=== PATIENT | female | born 1975 | race Caucasian/White ===

== ENCOUNTER 2017-03-21 05:47 | Day surgery (SDC) | payer OTHER ==
[~2017-03-21] VITALS: Ht 154.9 cm; Wt 105.3 kg
[2017-03-21] VITALS (10 sets, daily range): BP systolic 128–159; BP diastolic 70–99; PULSE 90–102; RESP 15–29; O2SAT 90–98
[~2017-03-21 05:47] MED LIST: ALPR0.254 PO; APRE30TA2 PO; FLUO10CA20 PO; MULT-1018 PO; OMEP20TA86 PO; RANI300T4 PO; probiotic PO
[2017-03-21] MEDS ORDERED: Dexamethasone 4 mg/mL Inj ONE (05:48)
[2017-03-21] MEDS ORDERED: Glycopyrrolate 0.2 MG/ML 1mL Inj ONE (05:48)
[2017-03-21] MEDS ORDERED: Phenylephrine/NS 100 mCg/mL 10 mL Syringe IVPUSH ONE (05:48)
[2017-03-21] MEDS ORDERED: EPHEDrine/NS 5 mg/mL 5 mL Syringe ONE (05:48)
[2017-03-21] MEDS ORDERED: Ondansetron 2 mg/mL 2 mL Inj ONE (05:48)
[2017-03-21] MEDS ORDERED: fentaNYL-PF 50 mCg/mL 2 mL Inj ONE (05:48)
[2017-03-21] MEDS ORDERED: Propofol 10,000 mCg/mL 20 mL Inj ONE (05:48)
[2017-03-21] MEDS ORDERED: Rocuronium 10 mg/mL 5 mL Inj ONE (05:48)
[2017-03-21] MEDS ORDERED: Neostigmine 1 mg/mL 10 mL Inj ONE (05:48)
[2017-03-21] MEDS: Lactated Ringer's 1,000 ML IV SCH ×2 (05:54→12:08)
[2017-03-21] MEDS ORDERED: Lactated Ringer's 1,000 ML IV ONE (09:49)
--- NOTE | 2017-03-21 12:08 | PCM.HPANE ---
Patient Data Surgeon Admitting Provider: Attending Provider:Ayesha Moreno MD Primary Care Physician:Ewa Scott MD Other Provider:Nikki Khanna Anesthesia Reason for Visit Biliary Colic Ht/WT & BMI Height (Feet): 5 Height (Inches): 1 Weight (Kilograms): 105.3 Body Mass Index 43.00 Allergies Coded Allergies: Penicillins (Verified Allergy, Unknown, swelling, 03/16/17) Past Anesthesia History Anesthesia History: Denies:: Abnormal Airway, Anesthesia Reactions, Difficult Intubation, Fam Anesthesia Reaction, Fam Malignant Hypertherm, Malignant Hyperthermia Diabetes History Hx Diabetes?: No MRSA MRSA: No Medications Hypertension Medication: No Home Meds Incl Beta Kristian: No Reported Medications Ranitidine 300 Mg [id number] Mg PO DAILY Ref 0 03/16/17 [probiotic] No Conflict Check1 Tab PO DAILY 03/16/17 Apremilast (Otezla)30 Mg [id number] Mg PO Q12H 03/16/17 Omeprazole 20 Mg Tablet.dr20 Mg PO BID Ref 0 03/16/17 Multivitamin (Multi Vitamin Daily)1 Each Tablet1 Each PO DAILY 30 Days Ref 0 03/16/17 Fluoxetine 10 Mg Mtqzcbu57 Mg PO DAILY Ref 0 03/16/17 Alprazolam 0.25 Mg Tablet0.5-1 Tab PO BID PRN For Anxiety Ref 0 03/16/17 Discontinued Reported Medications Alprazolam 0.25 Mg Tablet0.25 Mg PO TID PRN For Anxiety 30 Days Ref 0 10/07/14 Omeprazole Magnesium (Omeprazole)20 Mg Capsule.dr20 Mg PO BID 30 Days Ref 0 10/07/14 Fluoxetine 20 Mg Dhsgytw59 Mg PO DAILY 30 Days Ref 0 10/07/14 History History of ENT Problems?: Yes HEENT History: Positive for:: Dysphagia TMJ Denies:: Abnormal Airway Difficult Intubation Hearing Problem Denture Type: None Teeth Condition: Within Normal Limits Hx of Heart Problems?: No Cardiovascular History: Denies:: AICD Chest Pain Edema Heart Murmur Hypertension Irregular Heartbeat Pacemaker Hx of Respiratory Problem?: No Respiratory History: Denies:: Asthma COPD Emphysema Oxygen Administration Pneumonia Tuberculosis Use of C-PAP Machine Use of Inhalers / NEBS Hx Neurologic Problems?: Yes Neurological History: Positive for:: Headaches Denies:: CVA Multiple Sclerosis Parkinson's Disease Seizures Hx of GI Problems?: Yes Other GI Pertinent History: hx of irritable bowel Hx of Problems?: No Genitourinary History: Denies:: Kidney Stones Urinary Tract Infection Female Hx: Denies:: Currently (HX: HYSTERECTOMY) Endometriosis Problems with Breasts? Skin History: Positive for:: History Skin Disorders? (psoriasis) Denies:: Pressure Ulcers Hx Musculoskeletal Problems?: Yes Musculoskeletal History: Positive for:: Fibromyalgia Denies:: Degenerative Joint Joint Replacement Musculoskeletal Trauma Osteoarthritis Hx of Psycho/Social Problems?: Yes Psycho Social History: Positive for:: Anxiety Hx Depression Hx Surgeries?: Yes (C/S X2,EXC GANGLION LT WRIST,T&A,ENDOMETRIAL BX) Hx Any Other Health Problems?: Yes Other History: Denies:: Cancer Endocrine Disease Hospitalization Thyroid Disease History Blood Transfusions: Denies:: Blood Transfusions Hx Diabetes: No Hx Alcohol Use: YesHx Substance Use: No Smoking Status: Former Smoker Have You Smoked inLast 12 mo: No Stop/Bang S-Snoring: Do You Snore Loudly: Yes T-Tired: feel tired, fatigued: No O-Obsered: Observed not breath: No P-Blood Pressure: treated: No B- Body Mass Index > 35 kg/m2: Yes A- Age over 50: No N- Neck Large Circumference: Yes G- Gender Male: No NAOMI Total Score: 2 NAOMI Risk Assessment: High Risk, =/>3 Yes Risk Assessment Category Category 1A: Patient has history of documented sleep apnea, and HAS NOT received any narcotic, sedative or anesthesia administration during this stay. Category 1B: Patient has history of documented sleep apnea, and HAS received any narcotic , sedative or anesthesia administration during this stay Category 2: Patient has SUSPECTED Obstructive Sleep Apnea, and HAS received any narcotic , sedative or anesthesia administration during this stay. Category 3: Patient has SUSPECTED Obstructive Sleep Apnea and HAS NOT received narcotic, sedative or anesthesia administration during this stay. Category 4: Outpatient in Procedural Areas with known sleep apnea or who screen positive for High Risk via the STOP/BANG questionnaire. Exam Exam Vital Signs Vital Signs Date Time Temp Pulse Resp B/P Pulse Ox O2 Delivery O2 Flow Rate FiO2 03/21/17 06:03 92 18 159/99 97 Room Air General Appearance: Alert, Oriented X3, Cooperative HEENT/AIRWAY: MP 3 Lungs: Clear to Auscultation Heart: Regular Rate/Rhythm Meds/Labs/Diagnostics Admission Meds Current Medications Lactated Ringer's (Lr) 1,000 ml @ 120 mls/hr Q8H20M IV Last administered on t 05:54; Start 03/21/17 at 05:00; Stop 03/21/17 at 13:19 Plan Impression Patient chart reviewed, patient interviewed and anesthestic plan with risks, benefits, and alternatives discussed, and informed consent obtained. ASA Physical Status: ASA3 Severe Disease Anesthetic Plan: GA Bene/Risks/Altern/Consents: Yes HP Complete Prior to Induction: Yes Gigi Urbano DO Mar 21, 2017 10:44
[2017-03-21] MEDS ORDERED: Bupivacaine-MPF 0.5% 30 mL Inj INFILTRATE ONE (12:35)
[2017-03-21] MEDS ORDERED: Bupivacaine 0.5% 50 mL Inj INFILTRATE ONE (12:35)
[2017-03-21] MEDS ORDERED: Lactated Ringer's 500 ML IV PRN (13:27)
[2017-03-21] MEDS ORDERED: Lactated Ringer's 1,000 ML IV SCH (13:27)
[2017-03-21] MEDS ORDERED: EPHEDrine Sulfate 50 mg/mL Inj IVPUSH PRN (13:30)
[2017-03-21] MEDS ORDERED: Ondansetron 2 mg/mL 2 mL Inj IVPUSH PRN (13:30)
[2017-03-21] MEDS ORDERED: HYDROmorphone 1 mg/mL Inj IVPUSH PRN (13:30)
[2017-03-21] MEDS ORDERED: Dexamethasone 4 mg/mL Inj IVPUSH PRN (13:30)
[2017-03-21] MEDS ORDERED: Phenylephrine 10,000 mCg/mL Inj IVPUSH PRN (13:30)
[2017-03-21] MEDS ORDERED: MetoCLOpramide 5 mg/mL 2 mL Inj IVPUSH PRN (13:30)
[2017-03-21] MEDS ORDERED: fentaNYL-PF 50 mCg/mL 2 mL Inj IVPUSH PRN (13:30)
[2017-03-21] MEDS ORDERED: oxyCODONE-Acetamin 5-325 mg Tablet PO PRN (13:55)
--- NOTE | 2017-03-21 14:02 | PCM.SURGOP ---
Surgical Operative Report Date of Service: Mar 21, 2017 Pre Operative Diagnosis Biliary colic Post Operative Diagnosis Chronic cholecystitis Procedure: Laparoscopic cholecystectomy, with intraoperative cholangiogram, with interpretation. Surgeon and Leather Production Worker: Surgeon: Ayesha Moreno MD Assistants: Xiomy Billy PA-C The presence of an retirement assistant was necessary for dissection and retraction. Indication for Procedure This is a 41yof with intermittent episodes of postprandial right upper quadrant pain and cholelithiasis on ultrasound without gallbladder wall thickening or pericholecystic fluid. She was scheduled for routine laparoscopic cholecystectomy on an outpatient basis. Findings: 1. Mildly inflamed gallbladder consistent with mild chronic cholecystitis. 2. Normal intraoperative cholangiogram with a long cystic duct, and adequate visualization of the right and left hepatic ducts, common hepatic duct, common bile duct, with good filling of the duodenum. Small filling defects with appearance of bubbles. Procedure Details The patient was brought to the operating room and placed in supine position. General endotracheal anesthesia was smoothly induced. Antibiotics were infused. A warming blanket and SCDs were placed. A foot board was placed. The operative field was prepped and draped in sterile fashion. A pause was performed to confirm the correct patient, procedure, site, and side. A vertical 10 mm incision was made several cm above the umbilicus. The abdomen was entered with an Optiview port. Three additional 5 mm ports were placed in the epigastrium and right upper quadrant. The gallbladder was identified and lifted cephalad. There were mild adhesions due to cholecystitis. Dissection then proceeded to identify the cystic duct, cystic artery, and to expose the lower one-third of the cystic plate. Once there were two and only two structures entering the gallbladder, a clip was placed on the gallbladder side of the cystic duct. A ductotomy was made and a cholangiocatheter was inserted. A cholangiogram was performed and the cystic duct was long and patent with normal filling of the common hepatic duct, common bile duct, and right and left hepatic ducts, as noted above. There were a few tiny filling defects with the appearance of bubbles. The cholangiocatheter was then removed, two clips were placed on the cystic duct and it was divided. The cystic artery was clipped on both the gallbladder side and the patient's side and divided. The gallbladder was then removed from its bed on the liver with electrocautery. Prior to completely removing the gallbladder, a final look was taken at the stump of the cystic artery and cystic duct, and there was no bleeding or bile leak. The gallbladder was then fully removed from the liver and placed in an EndoCatch bag and removed. The three 5 mm ports were removed under direct vision, the 10 mm mid abdominal port was removed, and a smdzja-om-alfsy 0 PDS was used to close the fascia. There was no fascial defect at the end of the case. 0.5% Marcaine with epinephrine was infused at all port sites for postoperative analgesia. The skin was closed with subcuticular 4-0 Monocryl. Sterile dressings were placed. Sponge, instrument, and needle counts were correct at the end of the procedure. The patient was awakened from general anesthesia and taken to the postoperative care unit in good condition. Complications There were no periprocedural complications identified. Surgical Specimen Removed: Yes Specimen sent to Pathology: Yes Surgical Specimen description: Gallbladder Anesthetic Plan: GA Grafts, Implants: None Output, Estimated Blood Loss: 2 (ml) Blood Administration during medeiros: No Ayesha Moreno MD Mar 21, 2017 14:02
[2017-03-21] MEDS ORDERED: OXYC1TAB24 PO (14:06)
--- NOTE | 2017-03-21 14:59 | DRSVH ---
PROCEDURE: X-RAY OPERATIVE CHOLANGIOGRAM ([id number]) INDICATIONS: BILIARY COLIC COMPARISON: [facility] Ultrasound, US, US ABDOMEN, 02/14/2017, 9:04. FINDINGS: Biliary ducts: The surgeon injected contrast into the biliary ducts after cannulation of the cystic duct stump. Visualized intra- and extrahepatic bile ducts are normal in caliber, without strictures. Several rounded intraluminal filling defects involving the extrahepatic bile duct.. No evidence fo r iatrogenic ductal injury. Duodenum: Contrast flows promptly through the sphincter of Oddi into the duodenum, which appears nor mal in caliber. IMPRESSION: Several small rounded intraluminal filling defect seen within the extra hepatic bile duct likely related to gas bubbles. Correlate with real-time examination. Dictated by: Stu Olivas RRA Interpreted: Cathy Stapleton MD on 03/21/2017 at 14:57 Transcribed by: TRAVON on 03/21/2017 at 14:58 Approved by: Cathy Stapleton MD, PhD on 03/21/2017 at 16:26
--- NOTE | 2017-03-21 16:52 | PCM.ANEP1 ---
Post Anesthesia Phase 1 PACU Phase 1 Assessment Date of Service: Mar 21, 2017 Vital Signs Vital Signs Date Time Temp Pulse Resp B/P Pulse Ox O2 Delivery O2 Flow Rate FiO2 03/21/17 15:15 90 16 128/70 98 Room Air 03/21/17 14:30 37.1 98 16 136/72 98 Nasal Cannula 2 03/21/17 14:21 94 15 128/83 96 Nasal Cannula 2 03/21/17 14:15 96 16 137/82 94 Nasal Cannula 2 03/21/17 14:10 94 18 134/81 90 Room Air 03/21/17 14:06 102 29 133/84 97 Simple Mask 10 03/21/17 14:00 95 20 136/81 97 Simple Mask 10 03/21/17 13:55 96 17 140/82 97 Simple Mask 10 03/21/17 13:52 36.4 94 16 142/82 97 Simple Mask 10 Anesthetic Administered: GA Level of Alertness: Sleepy, easy to arouse STORY's with Equal Strength: Yes Pain: No Nausea or Vomiting: No Cardiovascular Function and Hy: Yes Oxygen Delivery: Simple Mask Lungs: Clear to Auscultation Complications: No Follow up Care: No Patient Instructions Provided: Yes Gigi Urbano DO Mar 21, 2017 16:52
--- NOTE | 2017-03-23 13:21 | PATH ---
SURGICAL PATHOLOGY Attending Physician:Ayesha Moreno MD CASE STATUS: Signed Out PATIENT NAME: BARRY ORELLANA PID: [id number] : 1975 DATE COLLECTED:03/21/2017 00:00 SPECIMEN: Gallbladder CLINICAL HISTORY: BILIARY COLIC 1). GALLBLADDER FINAL DIAGNOSIS: 1.GALLBLADDER: CHOLELITHIASIS. ICD10 CODE K80.7 GROSS DESCRIPTION: The specimen is received in one formalin filled container labeled with the patient's name, sublabeled "gallbladder" and consists of a opened 7.0 x 3.0 x 1.0 CM gallbladder. The serosa is smooth. The wall is 0.2-0.3 CM in thickness. The mucosa is a light heaton brown in color. The lumen contains a light green mucoid material and 6 green heaton rough calculi which range in size from 0.6-0.7 CM. 5 in home sales representative sections are submitted in one cassette. 03/22/2017 DAC MICRO DESCRIPTION: See diagnosis. ICD-9 CODES: CPT CODES: 1: 45086 Electronically Signed Out Brittanie Frost MD [facility] [address], [place] [address] Technical component performed at [facility], [address] [place] [address] Ave[address], [place], [address]
== END 2017-03-21 23:59 | disposition home or self-care (01) ==
LOC: SAS 05:47
PROVIDERS: ATTEND Surgery
DX: K80.10 Calculus of gallbladder with chronic cholecystitis without obstruction (principal); R10.11 Right upper quadrant pain; E78.5 Hyperlipidemia, unspecified; K58.9 Irritable bowel syndrome, unspecified; F41.9 Anxiety disorder, unspecified; K57.30 Diverticulosis of large intestine without perforation or abscess without bleeding; K21.9 Gastro-esophageal reflux disease without esophagitis; E78.1 Pure hyperglyceridemia; E66.01 Morbid (severe) obesity due to excess calories; M79.7 Fibromyalgia; Z90.710 Acquired absence of both cervix and uterus; Z87.891 Personal history of nicotine dependence; Z68.41 Body mass index [BMI] 40.0-44.9, adult
CPT/HCPCS: 47563; 74300; J1100; J2250; J2370; J2405; J2710; J3010; J7120; Q9967